=== PATIENT | male | born 1975 | race Caucasian/White ===

== ENCOUNTER 2016-08-15 17:55 | Outpatient (CLI) | payer OTHER ==
--- NOTE | 2016-08-16 11:50 | DIAGNOSTIC IMAGING REPORT ---
PROCEDURE: US SOFT TISSUE THYR/NECK/HEAD INDICATION: Painful right neck mass for 2 years, now enlarging. TECHNIQUE: Cline scale and color Doppler sonographic imaging of the right neck lump was performed. COMPARISON: None. FINDINGS: There is an ovoid horizontally oriented solid soft tissue nodule in the right neck subcutaneous tissues in the area of palpable lump. It measures 1.1 x 0.9 x 0.5 cm. There is increase posterior enhancement, echogenic fatty hilum, and a central/hilar vascularity. The cortex does appear mildly thickened. No other enlarged lymph nodes in the right neck IMPRESSION: 1. Mildly prominent lymph node corresponds to the palpable, enlarging right neck lump. It is not pathologically enlarged by size criteria, but the cortex appears mildly thickened. 2. Clinical follow-up is recommended and ultrasound follow-up in 1-2 months if not clinically resolved is suggested. If the node is unresolved follow-up, fine needle aspiration is recommended.
== END 2016-08-15 23:00 ==
LOC: US SRH 17:55
DX: R22.1 Localized swelling, mass and lump, neck (principal)